=== PATIENT | female | born 1950 | race Caucasian/White ===

== ENCOUNTER → 2016-04-25 | Outpatient (CLI) | payer OTHER ==
[~2016-04-25] MED LIST: ASPIR-LOW81 MG PO; BENICAR20 MG PO; DULCOLAX10 MG PR; Effexor XR PO; Fosamax PO; IMDUR30 MG PO; MOTRIN800 MG PO; Mylicon,Mylanta Gas, PO; NORVASC10 MG PO; NYSTATIN-TRIAMC15 G1 TP; OMEGA 3 KRILL OIL; PROTONIX40 MG PO; Prevacid PO; Toradol PO; VESICARE10 MG PO; VITAMIN D-32000 UNI1 PO
== END | disposition home or self-care (01) ==
DX: M17.12 Unilateral primary osteoarthritis, left knee (principal); R26.2 Difficulty in walking, not elsewhere classified; M62.81 Muscle weakness (generalized); M25.662 Stiffness of left knee, not elsewhere classified
CPT/HCPCS: 97110 GP; 97150 GO; 97161 GP; 97165 GO; G8978 GP; G8979 GP; G8980 GP; G8987 GO; G8988 GO; G8989 GO

== ENCOUNTER 2016-05-23 05:50 | Inpatient (IN) | payer OTHER ==
[~2016-05-23] VITALS: Ht 157.5 cm; Wt 106.4 kg
[~2016-05-23 05:50] MED LIST changes: +ANUSOL HC,ANUCO25 MG PR; +EFFEXOR75 MG PO; +IRON325 MG PO; +LIPITOR40 MG PO; +LO-DOSE ASPIRIN81 M2 PO; +NYSTATIN15 GM TP; +OMEGA 3 500 SO1 EACH PO; +ONE DAILY FOR1 EAC3 PO; +PREVACID30 MG PO; +TEMOVATE 0.05%30 GM TP; +TYLENOL ARTHRI650 MG PO; +VITAMIN D32000 UNI1 PO
[2016-05-23 06:12] VITALS: BP 127/80
[2016-05-23 10:24] LABS: HEMATOCRIT 37.2 % (36.0-46.0); MCH 28.2 PG (29.0-34.0); MCHC 31.7 G/DL (30.0-36.0); MCV 88.8 FL (83-99); PLATELET COUNT 250 K/uL (156-360); RBC DIS.WIDTH-CV 13.7 % (11.8-14.6); RBC DIS.WIDTH-SD 44.5 % (39-53); RED BLOOD COUNT 4.19 M/uL (3.80-5.20)
[2016-05-23 11:00] VITALS: BP 101/55
[2016-05-23 15:57] VITALS: BP 119/70
[2016-05-23 19:13] LABS: HEMATOCRIT 38.9 % (36.0-46.0); MCV 88.4 FL (83-99)
[2016-05-23 20:44] VITALS: BP 127/71
[2016-05-24] VITALS: BP 132/74
[2016-05-24 04:30] VITALS: BP 109/70
[2016-05-24 05:51] LABS: HEMATOCRIT 39.5 % (36.0-46.0); MCV 88.6 FL (83-99)
[2016-05-24 06:11] LABS: ANION GAP 12 MEQ/L (2-14); CHLORIDE 99 MEQ/L (99-109); GFR ESTIMATE (CALCULATED) > 59 mL/min/; GLUCOSE 139 mg/dL (70-99); POTASSIUM 3.4 MEQ/L (3.7-5.4); SAMPLE HEMOLYSIS CHECK 0; SAMPLE ICTERIC CHECK 0; SAMPLE LIPEMIA CHECK 0; SODIUM 134 MEQ/L (136-147); UREA NITROGEN (BUN) 7 mg/dL (9-23)
[2016-05-24 08:00] VITALS: BP 122/71
[2016-05-24 12:17] VITALS: BP 122/73
[2016-05-24 16:06] VITALS: BP 98/55
[2016-05-24 20:02] VITALS: BP 118/66
[2016-05-25] VITALS (7 sets, daily range): BP systolic 105–158; BP diastolic 52–76
[2016-05-25 04:52] LABS: MCV 87.6 FL (83-99)
[2016-05-25 05:00] LABS: CHLORIDE 101 mEq/L (99-109); POTASSIUM 3.4 mEq/L (3.7-5.4); SODIUM 136 mEq/L (136-147)
[2016-05-25 05:01] LABS: GLUCOSE 125 mg/dL (70-99)
[2016-05-25 05:03] LABS: ANION GAP 10 MEQ/L (2-14)
[2016-05-25 05:05] LABS: GFR ESTIMATE (CALCULATED) > 59 mL/min/
[2016-05-25 05:06] LABS: UREA NITROGEN (BUN) 19 mg/dL (9-23)
[2016-05-26 05:09] VITALS: BP 113/60
[2016-05-26] MEDS ORDERED: DOCUSATE SODIU100 MG PO (08:36)
[2016-05-26] MEDS ORDERED: ENDOCET 5-3251 EACH PO (08:37)
[2016-05-26] MEDS ORDERED: CELECOXIB200 MG PO (08:37)
[2016-05-26] MEDS ORDERED: LOVENOX40 MG/0.4 SC ×2 (08:37→10:52)
[2016-05-26 10:08] VITALS: BP 133/66
[2016-05-26] MEDS ORDERED: PERCOCET 10/1 TABLET PO (10:57)
[2016-05-26] MEDS ORDERED: COZAAR50 MG PO (11:03)
[2016-05-26] MEDS ORDERED: PERI-COLACE TA1 EACH PO ×2 (11:05→11:06)
[2016-05-26] MEDS ORDERED: PROTONIX40 MG PO (11:07)
[2016-05-26] MEDS ORDERED: ZOFRAN4 MG PO (11:10)
[2016-05-26] MEDS ORDERED: REGLAN10 MG PO (11:13)
[2016-05-26] MEDS ORDERED: LIDODERM 5% P1 PATCH TD (11:14)
[2016-05-26] MEDS ORDERED: BENADRYL25 MG PO (11:16)
[2016-05-26] MEDS ORDERED: NORCO 10/3251 TABLET PO (11:17)
[2016-05-26] MEDS ORDERED: TYLENOL REGULA325 MG PO (11:18)
[2016-05-26] MEDS ORDERED: NORCO 5/3251 TABLET PO (11:18)
[2016-05-26] MEDS ORDERED: EFFEXOR XR75 MG PO (14:07)
== END 2016-05-26 10:27 | DRG 470 ==
LOC: 3WEST 05:50 → 2SOUTH 05:50 → 3WEST 10:44 → 2SOUTH 11:07 → 3EAST 05-25 17:58
PROVIDERS: Orthopaedic Surgery; Physician Assistant
PROC: 0SRD0J9 Replacement of Left Knee Joint with Synthetic Substitute, Cemented, Open Approach (ICD-10-PCS; principal; 2016-05-23)
DX: M17.12 Unilateral primary osteoarthritis, left knee (principal); I10 Essential (primary) hypertension; K21.9 Gastro-esophageal reflux disease without esophagitis; K20.8 Other esophagitis; K22.70 Barrett's esophagus without dysplasia; E66.9 Obesity, unspecified; Z68.41 Body mass index [BMI] 40.0-44.9, adult; N60.19 Diffuse cystic mastopathy of unspecified breast; R32 Unspecified urinary incontinence; M81.0 Age-related osteoporosis without current pathological fracture; E78.00 Pure hypercholesterolemia, unspecified; E78.5 Hyperlipidemia, unspecified; F32.9 Major depressive disorder, single episode, unspecified; Z85.42 Personal history of malignant neoplasm of other parts of uterus; H26.9 Unspecified cataract
CPT/HCPCS: 73560; 80048; 85014; 85018; 85027; 94799; J0131; J0690; J1170; J1200; J1650; J2250; J2405; J7030; J7050

== ENCOUNTER 2016-05-26 09:01 | Inpatient (IN) | payer OTHER ==
[~2016-05-26] VITALS: Ht 157.5 cm; Wt 103.3 kg
[~2016-05-26 09:01] MED LIST changes: +CELECOXIB200 MG PO; +DOCUSATE SODIU100 MG PO; +ENDOCET 5-3251 EACH PO; +LOVENOX40 MG/0.4 SC
[2016-05-26 10:45] VITALS: BP 103/59
[2016-05-26] MEDS ORDERED: LOVENOX40 MG/0.4 SC (10:52)
[2016-05-26] MEDS ORDERED: PERCOCET 10/1 TABLET PO (10:57)
[2016-05-26] MEDS ORDERED: COZAAR50 MG PO (11:03)
[2016-05-26] MEDS ORDERED: PERI-COLACE TA1 EACH PO ×2 (11:05→11:06)
[2016-05-26] MEDS ORDERED: PROTONIX40 MG PO (11:07)
[2016-05-26] MEDS ORDERED: ZOFRAN4 MG PO (11:10)
[2016-05-26] MEDS ORDERED: REGLAN10 MG PO (11:13)
[2016-05-26] MEDS ORDERED: LIDODERM 5% P1 PATCH TD (11:14)
[2016-05-26] MEDS ORDERED: BENADRYL25 MG PO (11:16)
[2016-05-26] MEDS ORDERED: NORCO 10/3251 TABLET PO (11:17)
[2016-05-26] MEDS ORDERED: TYLENOL REGULA325 MG PO (11:18)
[2016-05-26] MEDS ORDERED: NORCO 5/3251 TABLET PO (11:18)
[2016-05-26] MEDS ORDERED: EFFEXOR XR75 MG PO (14:07)
[2016-05-26 16:06] VITALS: BP 113/62
[2016-05-26 23:30] VITALS: BP 114/53
[2016-05-27 04:49] VITALS: BP 117/74
[2016-05-27 05:49] LABS: HEMATOCRIT 32.5 % (36.0-46.0); MCH 27.7 PG (29.0-34.0); MCHC 31.7 G/DL (30.0-36.0); MCV 87.4 FL (83-99); MEAN PLAT.VOLUME 9.3 uM^3 (9.5-12.4); PLATELET COUNT 298 K/uL (156-360); RBC DIS.WIDTH-CV 13.8 % (11.8-14.6); RBC DIS.WIDTH-SD 43.5 % (39-53); RED BLOOD COUNT 3.72 M/uL (3.80-5.20); WHITE BLOOD COUNT 9.2 K/uL (4.1-10.2)
[2016-05-27 06:05] LABS: ALKALINE PHOSPHATASE 85 IU/L (3-129); ANION GAP 9 MEQ/L (2-14); CHLORIDE 100 MEQ/L (99-109); GFR ESTIMATE (CALCULATED) > 59 mL/min/; GLUCOSE 105 mg/dL (70-99); POTASSIUM 3.5 MEQ/L (3.7-5.4); SAMPLE HEMOLYSIS CHECK 0; SAMPLE ICTERIC CHECK 0; SAMPLE LIPEMIA CHECK 0; SODIUM 137 MEQ/L (136-147); TOTAL BILIRUBIN 0.8 MG/DL (0.0-1.0); UREA NITROGEN (BUN) 20 mg/dL (9-23)
[2016-05-27 15:01] VITALS: BP 103/62
[2016-05-28 05:01] VITALS: BP 110/60
[2016-05-28 05:26] LABS: CHLORIDE 103 mEq/L (99-109); POTASSIUM 3.6 mEq/L (3.7-5.4); SODIUM 140 mEq/L (136-147)
[2016-05-28 05:28] LABS: GLUCOSE 106 mg/dL (70-99)
[2016-05-28 05:29] LABS: ANION GAP 12 MEQ/L (2-14)
[2016-05-28 05:32] LABS: GFR ESTIMATE (CALCULATED) > 59 mL/min/
[2016-05-28 05:33] LABS: UREA NITROGEN (BUN) 15 mg/dL (9-23)
[2016-05-28 14:35] VITALS: BP 129/70
[2016-05-29 05:10] LABS: CHLORIDE 104 mEq/L (99-109); SODIUM 139 mEq/L (136-147)
[2016-05-29 05:12] LABS: GLUCOSE 101 mg/dL (70-99)
[2016-05-29 05:13] LABS: ANION GAP 12 MEQ/L (2-14)
[2016-05-29 05:16] LABS: GFR ESTIMATE (CALCULATED) > 59 mL/min/; UREA NITROGEN (BUN) 10 mg/dL (9-23)
[2016-05-29 05:55] VITALS: BP 124/69
[2016-05-29 15:10] VITALS: BP 123/71
[2016-05-30 05:16] VITALS: BP 118/60
== END 2016-05-30 14:53 | DRG 556 ==
LOC: 3WEST 09:01
PROVIDERS: Physical Medicine & Rehabilitation Pain Medicine
PROC: F07M0ZZ Range of Motion and Joint Mobility Treatment of Musculoskeletal System - Whole Body (ICD-10-PCS; principal; 2016-05-26)
DX: R26.2 Difficulty in walking, not elsewhere classified (principal); G89.18 Other acute postprocedural pain; Z47.1 Aftercare following joint replacement surgery; Z96.652 Presence of left artificial knee joint; M79.662 Pain in left lower leg; D62 Acute posthemorrhagic anemia; I10 Essential (primary) hypertension; E78.00 Pure hypercholesterolemia, unspecified; K21.9 Gastro-esophageal reflux disease without esophagitis; E78.5 Hyperlipidemia, unspecified; M81.0 Age-related osteoporosis without current pathological fracture; E66.01 Morbid (severe) obesity due to excess calories; E87.6 Hypokalemia; E11.9 Type 2 diabetes mellitus without complications; F32.9 Major depressive disorder, single episode, unspecified; Z85.42 Personal history of malignant neoplasm of other parts of uterus; Z68.41 Body mass index [BMI] 40.0-44.9, adult
CPT/HCPCS: 80048; 80053; 85027; 93971; 97110 GO; 97530 GP; J1650